=== PATIENT | female | born 1975 | race Caucasian/White ===

== ENCOUNTER 2016-08-30 15:00 | Outpatient (CLI) | payer BC ==
--- NOTE | 2016-08-31 09:46 | XRAY Report ---
RIGHT HIP, TWO-VIEW STUDY: 08/30/2016 HISTORY: Chronic hip pain. FINDINGS: BONES: Normal. No fractures or osseous lesions. JOINTS: The hip and visualized pelvis are intact with no significant arthritic disease. SOFT TISSUES: Unremarkable. IMPRESSION: NORMAL HIP RADIOGRAPHY. JOB #: [id number] EXT JOB #:[id number]
== END 2016-08-30 15:01 | disposition home or self-care (01) ==
LOC: DI 15:00
PROVIDERS: ATTEND Internal Medicine
DX: M25.551 Pain in right hip (principal)

== ENCOUNTER 2016-09-27 11:29 | Outpatient (CLI) | payer BC | END 2016-09-27 11:30 | disposition home or self-care (01) | DX: Q96.9 Turner's syndrome, unspecified (principal); Q23.1 Congenital insufficiency of aortic valve; I10 Essential (primary) hypertension; R00.2 Palpitations; I51.7 Cardiomegaly; I77.810 Thoracic aortic ectasia ==

== ENCOUNTER 2016-12-22 16:13 | Emergency (ER) | payer BC ==
[2016-12-22] MEDS ORDERED: ASPIRIN CHEW 81 MG TABLET PO STA (16:34)
[2016-12-22] MEDS ORDERED: ASPIRIN CHEW 81 MG TABLET ONE (16:37)
--- NOTE | 2016-12-22 16:37 | ED Physician Documentation ---
PD HPI CHEST PAIN - Stated complaint Stated Complaint: CP/JAW PX - Chief complaint Chief Complaint: Cardiac - History obtained from History obtained from: Patient - History of Present Illness Timing - onset: How many days ago ("a few") Timing - duration: Minutes (Lasting about a minute at a time.) Timing - details: Intermittant Quality: Other ("discomfort") Location: Substernal Radiation: Jaw Associated symptoms: Shortness of air. 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 In addition, yesterday and today she has experienced intermittent episodes of jaw pain, lasting for about a minute or less each time. She reports associated shortness of breath. She denies nausea, vomiting , or diaphoresis. She is not aware of anything in particular that makes the symptoms worse or better. She denies history of similar symptoms in the past. Her past medical history is significant for Steve syndrome, and a "trileaflet valve." Review of her medical record reveals an echocardiogram for evaluation of a bicuspid aortic valve. Cardiac risk factors are positive for hypertension; negative for diabetes, hyperlipidemia, cigarette smoking, or family history of early [place]. Review of Systems Constitutional: denies: Fever, Fatigue Ears: denies: Tinnitus/ringing Nose: denies: Congestion Throat: denies: Sore throat Cardiac: reports: Chest pain / pressure, Palpitations Respiratory: reports: Dyspnea. denies: Cough GI: denies: Abdominal Pain, Nausea, Vomiting : denies: Dysuria Skin: denies: Rash Musculoskeletal: denies: Back pain, Extremity swelling Neurologic: denies: Focal weakness, Numbness, Headache PD PAST MEDICAL HISTORY - Past Medical History Past Medical History: Yes Cardiovascular: Hypertension, Valve disorder Respiratory: None Neuro: None Endocrine/Autoimmune: None GI: None Other Past Medical History: Steve's syndrome - Past Surgical History Past Surgical History: Yes Cardiovascular: Valve replacement - Present Medications Home Medications: Ambulatory Orders Medication Instructions Recorded Confirmed Potassium Chloride [K-Dur] 20 meq PO DAILY #30 tablet 12/22/16 - Allergies Allergies/Adverse Reactions: Allergies Allergy/AdvReac Type Severity Reaction Status Date / Time No Known Drug Allergies Allergy Verified 12/22/16 16:22 - Social History Does the pt smoke?: No Smoking Status: Never smoker PD ED PE NORMAL - Vitals Vital signs reviewed: Yes (initially hypertensive) - General General: Alert and oriented X 3, Well developed/nourished - HEENT HEENT: Atraumatic, EOMI, Pharynx benign - Neck Neck: No adenopathy, No JVD - Cardiac Cardiac: RRR, No murmur - Respiratory Respiratory: No respiratory distress, Clear bilaterally - Abdomen Abdomen: Soft, Non tender - Back Back: No CVA TTP - Derm Derm: No rash - Extremities Extremities: No edema, No calf tenderness / cord - Neuro Neuro: Alert and oriented X 3, No motor deficit, Normal speech Results - Vitals Vitals: Oxygen O2 Source Room air - EKG (time done) 16:27 Rate: Rate (enter#) (84) Rhythm: NSR [place]: Normal Intervals: Normal [place] QRS: Normal Ischemia: T wave inversion (in leads II, III, aVF, and V2-V6.) Compare to prior EKG: Old EKG unavailable Computer interpretation: Agree with computer - Labs Labs: Laboratory Tests 12/22/16 12/22/16 12/22/16 16:44 16:44 16:44 WBC 8.9 RBC 4.15 L Hgb 12.9 Hct 36.5 L MCV 87.9 MCH 31.1 H MCHC 35.4 RDW 12.4 Plt Count 243 MPV 6.5 L Neut # 6.1 Lymph # 2.1 Casey # 0.6 Eos # 0.0 Baso # 0.0 Absolute Nucleated RBC 0.00 Nucleated RBCs 0.0 Sodium 136 Potassium 3.1 L Chloride 104 Carbon Dioxide 25 Anion Gap 7.0 BUN 14 Creatinine 0.6 Estimated GFR (MDRD) 110 Glucose 130 H Calcium 8.7 Total Bilirubin 0.4 AST 23 ALT 21 Alkaline Phosphatase 95 Troponin I < 0.04 Total Protein 7.0 Albumin 4.0 Globulin 3.0 Albumin/Globulin Ratio 1.3 Lipase 20 L - Rads (name of study) CXR Radiology: Prelim report reviewed, EMP read contemporaneously, See rad report ( Normal single view chest.) PD MEDICAL DECISION MAKING - ED course Complexity details: reviewed old records, reviewed results, re-evaluated patient , considered differential, d/w patient, d/w family ED course: The patient's presentation is atypical for cardiac ischemia, especially given the brief nature of the intermittent episodes. Her symptoms sound more likely to be caused by PVCs or some other brief episodic rhythm disturbance, given her description of associated palpitations. Hypokalemia may be a contributing factor. Her low potassium, at 3.1, is almost certainly due to the recent institution of treatment with hydrochlorothiazide 2 weeks ago. Treatment in the emergency department included administration of potassium 25 mEq orally. She is being discharged with prescription for supplemental potassium. I discussed with her and her the results of her workup, treatment with supplemental potassium, the importance of outpatient follow-up, as well as potentially worrisome signs or symptoms that should prompt reevaluation in the emergency department. Departure - Departure Disposition: 01 Home, Self Care Clinical Impression: Chest pain in adult, Hypokalemia Condition: Stable Instructions: ED Chest Pain Atypical Unkn Cause, ED Potassium Deficiency Follow-Up: Aleksey Arthur MD [Primary Care Provider] - Prescriptions: Potassium Chloride [K-Dur] 20 meq PO DAILY #30 tablet Comments: Take supplemental potassium daily as prescribed. Follow-up with your primary physician within 1 week. Call to schedule appointment. Return to the emergency department if you develop increasing chest pain, shortness of breath, or otherwise worsening symptoms. Discharge Date/Time: 12/22/16 17:59
[2016-12-22 16:54] LABS: BASOPHILS % (AUTO) 0.5 %; EOSINOPHILS % (AUTO) 0.3 %; HCT - HEMATOCRIT 36.5 % (37.0-47.0); HGB - HEMOGLOBIN 12.9 g/dL (12.0-16.0); LYMPHOCYTES # (AUTO) 2.1 10^3/uL (1.5-3.5); LYMPHOCYTES % (AUTO) 23.6 %; MEAN CORPUSCULAR HEMOGLOBIN 31.1 pg (27.0-31.0); MEAN CORPUSCULAR HGB CONC 35.4 g/dL (32.0-36.0); MEAN CORPUSCULAR VOLUME 87.9 fL (81.0-99.0); MEAN PLATELET VOLUME 6.5 fL (7.9-10.8); MONOCYTES # (AUTO) 0.6 10^3/uL (0.0-1.0); MONOCYTES % (AUTO) 6.8 %; NEUTROPHILS # (AUTO) 6.1 10^3/uL (1.5-6.6); NEUTROPHILS % (AUTO) 68.8 %; RED BLOOD COUNT 4.15 10^6/uL (4.20-5.40); RED CELL DISTRIBUTION WIDTH 12.4 % (12.0-15.0); UNCORRECTED WHITE BLOOD COUNT 8.9 x10^3/uL; WHITE BLOOD COUNT 8.9 x10^3/uL (4.8-10.8)
[2016-12-22 17:04] LABS: ALBUMIN/GLOBULIN RATIO 1.3 (1.0-2.2); BILIRUBIN,TOTAL 0.4 mg/dL (0.2-1.0); CALCIUM 8.7 mg/dL (8.5-10.3); CREATININE 0.6 mg/dL (0.4-1.0); POTASSIUM 3.1 mmol/L (3.5-5.0)
--- NOTE | 2016-12-22 17:40 | XRAY Preliminary Report ---
Exam: XR Chest 1 View IMPRESSION: Normal single view chest. [facility] SITE ID: [id number]
[2016-12-22] MEDS ORDERED: POTASSIUM BICARB 25 MEQ TABLET PO STA (17:44)
[2016-12-22] MEDS ORDERED: POTASSIUM BICARB 25 MEQ TABLET PO ONE (17:48)
[2016-12-22 17:51] VITALS: BP 138/95
--- NOTE | 2016-12-22 17:53 | XRAY Report ---
EXAM: CHEST RADIOGRAPHY EXAM DATE: 12/22/2016 05:18 PM. CLINICAL HISTORY: Chest pain. COMPARISON: 08/30/2016. TECHNIQUE: 1 view. FINDINGS: Lungs/Pleura: No focal opacities evident. No pleural effusion. No pneumothorax. Mediastinum: Within exam limitations, cardiomediastinal contour is normal. Other: None. IMPRESSION: Normal single view chest. [facility] Referring Provider Line: [phone] SITE ID: [id number]
== END 2016-12-22 17:59 | disposition home or self-care (01) ==
LOC: ED 16:13
DX: R07.9 Chest pain, unspecified (principal); E87.6 Hypokalemia; Q96.9 Turner's syndrome, unspecified; R94.31 Abnormal electrocardiogram [ECG] [EKG]; I10 Essential (primary) hypertension; Z95.2 Presence of prosthetic heart valve
CPT/HCPCS: 36415; 71010; 80053; 83690; 84484; 85025; 93005; 99284; A9270

== ENCOUNTER 2017-10-09 17:24 | Emergency (ER) | payer BC ==
[2017-10-09 17:30] VITALS: BP 124/89
--- NOTE | 2017-10-09 17:54 | ED Physician Documentation ---
History of Present Illness - Stated complaint Stated Complaint: BP ISSUES. SOB - Chief complaint Chief Complaint: General - History obtained from History obtained from: Patient - History of Present Illness Timing: Other (41-year-old woman with history of hypertension takes her blood pressure daily and had an asymptomatic reading of 142/100 today. No significant chest pain or trouble breathing with it, she always has some trouble breathing which she attributes to being overweight. No pedal edema.) Review of Systems Constitutional: denies: Fever, Chills Respiratory: denies: Cough GI: denies: Abdominal Pain, Nausea, Vomiting PD PAST MEDICAL HISTORY - Past Medical History Cardiovascular: Hypertension Respiratory: None Neuro: None Endocrine/Autoimmune: None GI: None - Present Medications Home Medications: Ambulatory Orders Medication Instructions Recorded Confirmed Potassium Chloride [K-Dur] 20 meq PO DAILY #30 tablet 12/22/16 Estradiol 1 mg PO 10/09/17 Levothyroxine Sodium 0 mcg PO 10/09/17 Simvastatin 5 mg PO 10/09/17 amLODIPine [Norvasc] 10/09/17 hydroCHLOROthiazide 25 mg PO 10/09/17 [Hydrochlorothiazide] medroxyPROGESTERone [Provera] 0 mg PO 10/09/17 rOPINIRole [Requip] 0.25 mg PO QPM 10/09/17 10/09/17 - Allergies Allergies/Adverse Reactions: Allergies Allergy/AdvReac Type Severity Reaction Status Date / Time No Known Drug Allergies Allergy Verified 10/09/17 17:31 - Social History Does the pt smoke?: No Smoking Status: Never smoker PD ED PE NORMAL - Vitals Vital signs reviewed: Yes - General General: Alert and oriented X 3, No acute distress - HEENT HEENT: PERRL, EOMI - Neck Neck: Supple, no meningeal sign, No bony TTP - Cardiac Cardiac: RRR, No murmur - Respiratory Respiratory: No respiratory distress, Clear bilaterally - Abdomen Abdomen: Non tender - Extremities Extremities: No edema, No calf tenderness / cord - Neuro Neuro: Alert and oriented X 3, Normal speech Results - Vitals Vitals: Vital Signs - 24 hr 10/09/17 17:28 Temperature 37 C Heart Rate 85 Respiratory 18 Rate Blood Pressure 124/89 H O2 Saturation 98 Oxygen O2 Source Room air - EKG (time done) 1752 Rate: Rate (enter#) (73) Rhythm: NSR [place]: Normal Intervals: Normal [place] Ischemia: Other (She has flat inferior T waves and inverted anterior T waves without significant change from last EKG on the chart dated December 222016.) Departure - Departure Disposition: 01 Home, Self Care Clinical Impression: Hypertension Qualifiers: Hypertension type: essential hypertension Qualified Code(s): I10 - Essential ( primary) hypertension Condition: Good Record reviewed to determine appropriate education?: Yes Instructions: Hypertension Dc Comments: Recheck with your doctor in a week or so, return if new or worsening symptoms develop.
== END 2017-10-09 18:19 | disposition home or self-care (01) ==
LOC: ED 17:24
DX: I10 Essential (primary) hypertension (principal); R94.31 Abnormal electrocardiogram [ECG] [EKG]
CPT/HCPCS: 93005; 99282; 99284

== ENCOUNTER 2018-09-11 13:54 | Outpatient (CLI) | payer BC ==
[2018-09-12 07:01] LABS: ESTRADIOL 126 pg/mL; PROGESTERONE <0.5 ng/mL
== END 2018-09-11 13:55 | disposition home or self-care (01) ==
LOC: LAB 13:54
PROVIDERS: ATTEND Obstetrics & Gynecology
DX: Q96.9 Turner's syndrome, unspecified (principal)
CPT/HCPCS: 36415; 82670; 84144

== ENCOUNTER 2018-11-20 16:31 | Outpatient (CLI) | payer BC ==
--- NOTE | 2018-11-21 08:59 | Mammography Report ---
Reason: SCREENING MAMMO Procedure Date: 11/20/2018 Accession Number: [id number] / [id number] Procedure: CYNDEE - Screening Mammo w/Nathanael CPT Code: FULL RESULT: EXAM: Screening Mammo w/Nathanael DATE: 11/20/2018 5:01 PM CLINICAL HISTORY: History of nulliparity. Screening encounter. TECHNIQUE: (B) - Bilateral CC and MLO views were obtained. A right laterally exaggerated CC views obtained. COMPARISON: 05/22/2015 and 09/15/2010. PARENCHYMAL PATTERN: (F) - The breast(s) demonstrate(s) diffuse fatty replacement. FINDINGS: There are no suspicious masses, calcifications, or areas of distortion. IMPRESSION: Negative examination. BI-RADS category 1. RECOMMENDATION: (ANNUAL) - Recommend routine annual screening mammography. BI-RADS CATEGORY: (1) - Negative. STANDARD QUALIFYING STATEMENTS: 1. This examination was not reviewed with the aid of Computer-Aided Detection (CAD). 2. A negative or benign imaging report should not preclude biopsy if clinically suspicious findings are present. 3. Dense breasts may obscure an underlying neoplasm. 4. This examination was reviewed with the aid of 3D breast imaging (tomosynthesis).
== END 2018-11-20 16:32 | disposition home or self-care (01) ==
LOC: DI 16:31
PROVIDERS: ATTEND Obstetrics & Gynecology
DX: Z12.39 Encounter for other screening for malignant neoplasm of breast (principal)
CPT/HCPCS: 77063; 77067

== ENCOUNTER 2019-08-16 12:03 | Outpatient (CLI) | payer BC ==
--- NOTE | 2019-08-18 07:09 | Ultrasound Report ---
Reason: DUB, MEZA'S SYNDROME Procedure Date: 08/16/2019 Accession Number: [id number] / [id number] Procedure: US - Pelvic w/Transvaginal CPT Code: Final Report FULL RESULT: EXAM: PELVIC ULTRASOUND EXAM DATE: 08/16/2019 12:41 PM. CLINICAL HISTORY: DUB, TURNERS SYNDROME. COMPARISON: None. TECHNIQUE: Realtime transabdominal pelvic scan performed to identify the uterus and adnexa and as an overview of other pelvic structures, followed by transvaginal scan to provide greater detail of the uterus and adnexa, with static image documentation. FINDINGS: Uterus: 8.3 x 3.6 x 5.1 cm, volume 80.8 cc. Anteverted position. Normal overall size and echotexture. Masses: None. Endometrium: 9 mm. Hypoechoic structure eccentric along the right endometrium measuring 9 x 7 x 4 mm, with color signal/vascularity Cervix: Nabothian cysts. Right Ovary: 2.3 x 1.2 x 1.5 cm, volume 2.0 cc. Anechoic cyst with thin septation containing mural nodule measures 1.7 x 1.0 cm, with the mural nodule measuring 2 mm. Normal echotexture and blood flow. Left Ovary: 1.6 x 1.2 x 1.1 cm, volume 1.0 cc. Normal echotexture and blood flow. Free Fluid: None. Other: None. IMPRESSION: 1. Suspicious for small endometrial mass near the fundus, favor polyp. Focal hyperplasia or endometrial cell carcinoma cannot be entirely excluded. Consider endometrial sampling. 2. Small cyst in the right ovary with thin septation containing mural nodule. Recommend 6-10 week follow-up ultrasound to assess for change or resolution [facility]
--- NOTE | 2019-08-20 11:16 | DEXA Report ---
Reason: PREMATURE MENOPAUSE, MEZA'S SYNDROME Procedure Date: 08/16/2019 Accession Number: [id number] / [id number] Procedure: DEX - Dexa Spine and/or Hip CPT Code: Final Report FULL RESULT: EXAM: Dexa Spine and/or Hip DATE: 08/16/2019 2:45 PM CLINICAL HISTORY: PREMATURE MENOPAUSE, MEZA'S SYNDROME TECHNIQUE: Dual energy x-ray absorptiometry (DXA) was performed on a [employer] System. Regions measured are the AP Spine, femoral neck, and if needed forearm. COMPARISON: None. In accordance with the International Society for Clinical Densitometry (ISCD) guidelines, data from previous exams may be reanalyzed using current recommendations and techniques. This is done to allow a more accurate basis for comparison with the current study. FINDINGS: The data for the lumbar spine is as follows: BMD (g/cm/cm) T-SCORE Z-SCORE REGION L1 0.961 -1.4 -2.2 L2 1.086 -0.9 -1.7 L3 1.243 0.4 -0.4 L4 1.180 -0.2 -0.9 TOTAL 1.122 -0.5 -1.2 NOTE: All evaluable vertebrae are used for classification The data for the hip is as follows: BMD (g/cm/cm) T-SCORE Z-SCORE REGION Neck 0.904 -1.0 -0.9 TOTAL 0.892 -0.9 -1.2 NOTE: The femoral neck or total proximal femur, whichever is lowest, is used for classification. IMPRESSION: THE WHO CLASSIFICATION BASED ON THE INTERNATIONAL REFERENCE STANDARD IS NORMAL. THE FRACTURE RISK IS NOT INCREASED. RECOMMENDATION: Patients with diagnosis of osteoporosis or osteopenia should have regular bone mineral density assessment. For those eligible for Medicare, routine testing is allowed once every 2 years. Testing frequency can be increased for patients who have rapidly progressing disease or for those who are receiving medical therapy to restore bone mass. COMMENT: World Health Organization (WHO) definitions for osteoporosis and osteopenia: NORMAL BMD: T-score at -1.0 or higher, fracture risk is low OSTEOPENIA BMD: T-score between -1.0 and -2.5, fracture risk is increased. OSTEOPOROSIS BMD: T-score at -2.5 or lower, fracture risk is high. National Osteoporosis Foundation recommends: 1. Obtain adequate dietary calcium (at least 1200 mg per day) and vitamin D (400-800 international units per day). 2. Participate, as appropriate, in regular weightbearing and muscle-strengthening exercise. 3. Avoid tobacco use and reduce alcohol and caffeine intake. 4. For more detailed information see the website at www.NOF.org.
== END 2019-08-16 12:04 | disposition home or self-care (01) ==
LOC: DI 12:03
PROVIDERS: ATTEND Obstetrics & Gynecology
DX: N83.201 Unspecified ovarian cyst, right side (principal)
CPT/HCPCS: 76830; 76856; 77080

== ENCOUNTER 2019-10-25 12:44 | Outpatient (CLI) | payer BC ==
--- NOTE | 2019-10-27 10:25 | Ultrasound Report ---
Reason: PREMATURE MENOPAUSE, DUB Procedure Date: 10/25/2019 Accession Number: [id number] / [id number] Procedure: US - Pelvic w/Transvaginal CPT Code: Final Report FULL RESULT: EXAM: PELVIC ULTRASOUND EXAM DATE: 10/25/2019 01:43 PM. CLINICAL HISTORY: PREMATURE MENOPAUSE, DUB. COMPARISON: PELVIC W/TRANSVAGINAL 08/16/2019 12:07 PM. TECHNIQUE: Realtime transabdominal pelvic scan performed to identify the uterus and adnexa and as an overview of other pelvic structures, followed by transvaginal scan to provide greater detail of the uterus and adnexa, with static image documentation. FINDINGS: Uterus: 8.3 x 4.3 x 4.8 cm, volume 90 cc. Anteverted position. There is heterogeneous echotexture. Masses: None. Endometrium: 7 mm. Endometrial stripe demonstrates ill-defined margins. Cervix: Cervical nabothian cysts are seen. Right Ovary: 2.1 x 0.9 x 1.8 cm, volume 1.8 cc. Normal echotexture and blood flow. A simple cyst is seen measuring 1.5 x 1.1 x 1.1 cm. Previously noted echogenic mural nodule is not appreciated on current exam. Left Ovary: Not seen secondary to obscuration by bowel gas. Free Fluid: None. Other: None. IMPRESSION: 1. Previously demonstrated mural nodule within right ovarian cyst not well appreciated on current exam, with simple cyst noted. 2. Prominent endometrium measuring up to 7 mm, with endometrial stripe demonstrating ill-defined margins. Polyp cannot be excluded. Previous recommendation of endometrial sampling should be performed, unless already done. [facility]
== END 2019-10-25 12:45 | disposition home or self-care (01) ==
LOC: DI 12:44
PROVIDERS: ATTEND Obstetrics & Gynecology
DX: N83.291 Other ovarian cyst, right side (principal); R93.89 Abnormal findings on diagnostic imaging of other specified body structures
CPT/HCPCS: 76830; 76856

== ENCOUNTER 2019-11-15 08:00 | Outpatient (CLI) | payer BC | END 2019-11-15 23:59 | disposition home or self-care (01) | LOC: LAB.WCP 08:00 | PROVIDERS: ATTEND Obstetrics & Gynecology | DX: Z01.818 Encounter for other preprocedural examination (principal) | CPT/HCPCS: 81599 ==

== ENCOUNTER 2020-05-15 16:40 | Outpatient (CLI) | payer BC | END 2020-05-15 23:59 | disposition home or self-care (01) | LOC: LAB.R 16:40 | PROVIDERS: ATTEND Physician Assistant | DX: J06.9 Acute upper respiratory infection, unspecified (principal); Z20.828 Contact with and (suspected) exposure to other viral communicable diseases ==

== ENCOUNTER 2022-03-18 13:59 | Outpatient (CLI) | payer BC ==
--- NOTE | 2022-03-18 17:12 | Ultrasound Report ---
PROCEDURE: Pelvic w/Transvaginal INDICATIONS: DUB, PREMATURE MENOPAUSE TECHNIQUE: Real-time scanning was performed of the pelvic organs, with image documentation. Additional endovagi nal scanning was necessary due to incomplete visualization of the adnexal and endometrial structures by transabdominal scanning. COMPARISON: None. FINDINGS: Uterus: Uterus is anteverted and normal in size at 8.5 x 4.8 x 4.5 cm. The myometrium is mildly het erogeneous. The endometrium measures 5.8 mm in combined thickness. Ovaries: The right ovary is not visualized. The left ovary measures 1.9 x 1.2 x 1.4 cm, with a calcu lated ovarian volume of 1.6 cc. The visualized ovary have a normal sonographic appearance. Less han n 12 follicles can be seen in each ovary. No adnexal masses are seen. Other: No pathologic free abdominal or pelvic fluid. IMPRESSION: Endometrium measures 5.8 cm. No focal mass is identified. This would be considered thick ened in a postmenopausal patient and biopsy would be recommended. Recommend correlation to menopause history. Reviewed by: Elisa Barney MD on 03/18/2022 5:11 PM PDT Approved by: Elisa Barney MD on 03/18/2022 5:11 PM PDT Station ID: [id number]
== END 2022-03-18 14:00 | disposition home or self-care (01) ==
LOC: DI 13:59
PROVIDERS: ATTEND Obstetrics & Gynecology
DX: N93.8 Other specified abnormal uterine and vaginal bleeding (principal); Q96.9 Turner's syndrome, unspecified

== ENCOUNTER 2022-03-18 15:45 | Outpatient (CLI) | payer BC ==
--- NOTE | 2022-03-21 10:05 | Mammography Report ---
BILATERAL DIGITAL SCREENING MAMMOGRAM 3D/2D WITH EXAGGERATED CC: 03/18/2022 CLINICAL: Routine screening. Comparison is made to exams dated: 11/20/2018 mammogram and 05/22/2015 mammogram - [facility]. Both breasts are almost entirely fatty (category a/<25% glandular tissue). No significant masses, calcifications, or other findings are seen in either breast. There has been no significant interval change. IMPRESSION: NEGATIVE There is no mammographic evidence of malignancy. A 1 year screening mammogram is recommended. Based on the Tyrer Cuzick model (a risk assessment model) the patients lifetime risk is 5.6% and her 10 year risk is 1.1%. According to the ACR, ACS, and NCCN guidelines, an annual breast MRI exam allyn g with mammogram is recommended if the patients lifetime risk is 20% or greater. This exam was interpreted at Station ID: [id number]. NOTE: For mammograms, a report in lay terms will be sent to the patient. Approximately 15% of breast malignancies will not be visualized mammographically. In the management of a palpable breast mass, a negative mammogram must not discourage biopsy of a clinically suspicious lesion. Electronically Signed By: Silva askew/penrad:03/18/2022 17:10:57 ACR BI-RADS Category 1: Negative 3341F PARENCHYMAL PATTERN: (F) - The breast(s) demonstrate(s) diffuse fatty replacement. BI-RADS CATEGORY: (1) - 1 RECOMMENDATION: (ANNUAL) - Recommend routine annual screening mammography. [id number] 1 year screening LATERALITY: (B)
== END 2022-03-18 23:59 | disposition home or self-care (01) ==
LOC: DI 15:45
PROVIDERS: ATTEND Obstetrics & Gynecology
DX: Z12.31 Encounter for screening mammogram for malignant neoplasm of breast (principal)

== ENCOUNTER 2022-03-19 23:28 | Emergency (ER) | payer BC ==
--- NOTE | 2022-03-20 00:02 | ED Physician Documentation ---
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 Onset earlier tonight shortly after eating marijuana edible. She says this is only the second time she has used marijuana, the first time being last night (same edible/dose but without adverse reaction). Review of Systems Constitutional: denies: Fever, Chills, Sweats Cardiac: denies: Chest pain / pressure, Palpitations Respiratory: denies: Dyspnea GI: denies: Abdominal Pain, Nausea, Vomiting PD PAST MEDICAL HISTORY - Past Medical History Cardiovascular: Hypertension Respiratory: None Neuro: None Endocrine/Autoimmune: None GI: None, Other Musculoskeletal: None, Other - Past Surgical History Past Surgical History: No Cardiovascular: Valve replacement - Present Medications Home Medications: Ambulatory Orders Medication Instructions Recorded Confirmed Potassium Chloride [K-Dur] 20 meq PO DAILY #30 tablet 12/22/16 03/19/22 Levothyroxine Sodium 50 mcg PO DAILY 10/09/17 03/19/22 Simvastatin 5 mg PO DAILY 10/09/17 03/19/22 amLODIPine [Norvasc] 2.5 mg PO DAILY 10/09/17 03/19/22 estradioL [Estradiol] 1 mg PO DAILY 10/09/17 03/19/22 hydroCHLOROthiazide 25 mg PO DAILY 10/09/17 03/19/22 [Hydrochlorothiazide] medroxyPROGESTERone [Provera] 2.5 mg PO DAILY 10/09/17 03/19/22 Pramipexole Di-HCl [Mirapex ER] 0.375 mg PO BID 03/19/22 03/19/22 Pregabalin [Lyrica] 25 mg PO HS 03/19/22 03/19/22 LORazepam [Ativan] 0.5 - 1 mg PO Q6H PRN #14 tablet 03/20/22 - Allergies Allergies/Adverse Reactions: Allergies Allergy/AdvReac Type Severity Reaction Status Date / Time No Known Drug Allergies Allergy Verified 10/09/17 17:31 - Social History Does the pt smoke?: No Smoking Status: Never smoker PD ED PE NORMAL - Vitals Vital signs reviewed: Yes - General General: Alert and oriented X 3, Well developed/nourished, Other (appears anxious, apprehensive, poor eye contact) - HEENT HEENT: PERRL, EOMI, Pharynx benign - Cardiac Cardiac: RRR - Respiratory Respiratory: No respiratory distress, Clear bilaterally - Abdomen Abdomen: Soft, Non tender - Derm Derm: Normal color, Warm and dry - Neuro Neuro: Alert and oriented X 3, No motor deficit, No sensory deficit, Normal speech Eye Opening: Spontaneous Motor: Obeys Commands Verbal: Oriented GCS Score: 15 PD ED PE EXPANDED - Cardiac Cardiac: Murmur Present (2/6 DONNA greatest at left 2nd ICS) Results - Vitals Vitals: Oxygen O2 Source Room air PD MEDICAL DECISION MAKING - ED course Complexity details: re-evaluated patient, considered differential, d/w patient ED course: given 2mg IM lorazepam and on reevaluation she is asleep, awakens to voice and reports feeling much improved. She is now making good eye contact and does not appear anxious nor apprehensive. HPI and timing of symptom onset with having just ingested marijuana edible are highly suggestive of adverse reaction to marijuana. Given her significant improvement after 2mg IM lorazepam, alternative diagnoses are not likely enough to warrant emergent testing at this time. Return precautions discussed. She is advised to not use marijuana again; she says tonight was only the second time she has used marijuana and already had concluded she will not be using marijuana again. Departure - Departure Disposition: 01 Home, Self Care Clinical Impression: Adverse effect of cannabis Qualifiers: Encounter type: initial encounter Qualified Code(s): T40.715A - Adverse effect of cannabis, initial encounter Condition: Good Instructions: ED Drug React Adverse Other Prescriptions: LORazepam [Ativan] 0.5 - 1 mg PO Q6H PRN #14 tablet PRN Reason: Anxiety Comments: Your symptoms are likely due to an adverse reaction to the marijuana edible you ingested tonight. You improved with an injection of lorazepam. You will probably not have worsening/recurrence of your symptoms, but a prescription for lorazepam has been electronically submitted to [facility] pharmacy in [place] in case the symptoms do worsen. Discharge Date/Time: 03/20/22 02:14
[2022-03-20] MEDS ORDERED: LORazepam 2 MG/ML VIAL IM STA (00:09)
[2022-03-20 02:08] VITALS: BP 107/73
== END 2022-03-20 02:14 | disposition home or self-care (01) ==
LOC: ED 23:28
DX: R25.1 Tremor, unspecified (principal); R42 Dizziness and giddiness; F41.9 Anxiety disorder, unspecified; T40.715A Adverse effect of cannabis, initial encounter
CPT/HCPCS: 96372; 99283; J2060

== ENCOUNTER 2023-01-17 07:56 | Day surgery (SDC) | payer BC ==
[2023-01-17] MEDS ORDERED: LACTATED RINGERS 1,000 ML IV ONE ×2 (07:57→10:01)
[2023-01-17] MEDS ORDERED: MIDAZOLAM 2 MG/2 ML VIAL ONE (08:45)
[2023-01-17] MEDS ORDERED: fentaNYL 100 MCG/2 ML VIAL ONE (08:45)
[2023-01-17] MEDS ORDERED: PROPOFOL 200 MG/20 ML VIAL IVP ONE (08:45)
--- NOTE | 2023-01-17 08:46 | ANESTHESIA ---
Pre-Anesthesia VS, & Labs - Diagnosis endometrial polyp, thickened endometrium - Procedure myosure hysterscopy, D&C Vital Signs: Temp Pulse Resp BP Pulse Ox O2 Flow Rate 36 C L 76 16 132/86 H 95 01/17/23 08:03 01/17/23 08:03 01/17/23 08:03 01/17/23 08:03 01/17/23 08:03 Height: 4 ft 11 in Weight (kg): 83 kg Body Mass Index: 36.9 BMI Classification: Obese - NPO >8 hours - Is Patient ?: No Home Medications and Allergies Levothyroxine Sodium 50 mcg PO DAILY 10/09/17 amLODIPine [Norvasc] 2.5 mg PO DAILY 10/09/17 hydroCHLOROthiazide [Hydrochlorothiazide] 25 mg PO DAILY 10/09/17 Pramipexole Di-HCl [Mirapex ER] 0.375 mg PO BID 03/19/22 Pregabalin [Lyrica] 50 mg PO BID 03/19/22 Ascorbic Acid/Ascorbate Sodium [Vitamin C 500 mg Tablet Chew] 1,000 mg PO DAILY 12/23/22 Atorvastatin [Lipitor] 1 tab PO DAILY 12/23/22 Cholecalciferol (Vitamin D3) [D3-5000] 1 cap PO DAILY 12/23/22 Clobetasol 0.05% Oint [Temovate 0.05% Oint] 1 applic TOP PRN PRN 12/23/22 Mecobalamin [B12 Active] 500 mcg PO DAILY 12/23/22 Potassium Chloride [K-Dur] 10 meq PO DAILY 12/23/22 Allergies/Adverse Reactions: Allergies Allergy/AdvReac Type Severity Reaction Status Date / Time No Known Drug Allergies Allergy Verified 12/23/22 14:25 Anes History & Medical History - Anesthetic History Anesthesia Complications: reports: No previous complications - Medical History Cardiovascular: reports: Hypertension, High cholesterol, Murmur (Sees cardiology, last visit no issues) Pulmonary: reports: None Gastrointestinal: reports: None Urinary: reports: None Neuro: reports: None Musculoskeletal: reports: Osteoarthritis Endocrine/Autoimmune: reports: HyPOthyroidism Blood Disorders: reports: None Skin: reports: None Smoking Status: Never smoker Psychosocial: reports: No issues indicated History of Cancer?: No - Surgical History Cardiothoracic: Gynecologic: reports: Dilation and currettage, Other Exam General: Alert, Oriented x3, Cooperative, No acute distress Dental: WNL Mouth Openin Fingerbreadth Neck Mobility: Normal Mallampati classification: II Thyromental Distance: 4-6 cm Mental/Cognitive Status: Alert/Oriented X3, Normal for patient Plan Anesthesia Type: General Consent for Procedure(s) Verified and Reviewed: Yes Code Status: Attempt Resuscitation ASA classification: 2-Mild systemic disease Is this case an emergency?: No
[2023-01-17] MEDS ORDERED: SILVER NITRATE APPLICATOR TOP ONE (08:50)
[2023-01-17] MEDS ORDERED: ONDANSETRON 4 MG/2 ML VIAL ONE (09:29)
[2023-01-17] MEDS ORDERED: DEXAMETHASONE 4 MG/ML VIAL ONE (09:29)
[2023-01-17] MEDS ORDERED: GLYCOPYRROLATE 1 MG/5 ML VIAL ONE (09:52)
[2023-01-17] MEDS ORDERED: KETOROLAC 30 MG/ML VIAL ONE (09:58)
[2023-01-17] MEDS ORDERED: ONDANSETRON 4 MG/2 ML VIAL IVP PRN (10:09)
[2023-01-17] MEDS ORDERED: ATROPINE ABBOJECT 1 MG/10 ML SYRINGE IVP PRN (10:09)
[2023-01-17] MEDS ORDERED: fentaNYL 100 MCG/2 ML VIAL IVP PRN (10:09)
[2023-01-17] MEDS ORDERED: NALOXONE 0.4 MG/ML VIAL IVP PRN (10:09)
[2023-01-17] MEDS ORDERED: HYDROmorphone 0.5 MG/0.5 ML SYRINGE IVP PRN (10:09)
[2023-01-17] MEDS ORDERED: MORPHINE 2 MG/ML CARPUJECT IVP PRN (10:09)
--- NOTE | 2023-01-17 10:17 | OPERATIVE REPORT ---
Operative Report - General Procedure Date: 01/17/23 Planned Procedure: Dilation, curettage, hysteroscopy, polypectomy Pre-Op Diagnosis: Endometrial polyp, postmenopausal bleeding Procedure Performed: Dilation, curettage, hysteroscopy Post Op Diagnosis: Normal appearing endometrium - Procedure Note Primary Surgeon: Florecita Cardozo DO Anesthesia Provider: Cora Santo CRNA Pathology: Endometrial curettings Estimated Blood Loss (mL): 20 Indications: Endometrial polyp, postmenopausal bleeding Findings: Normal appearing endometrium Complications: None - Other Other Information/Narrative: Transported to OR, anesthesia obtained. Placed in dorsal lithotomy position. Prepped and draped in sterile fashion. Bladder emptied with straight catheter. Speculum placed. Anterior lip of cervix grasped with single tooth tenaculum. Dilated to accomodate Myosure hysteroscope. Hysteroscope introduced and normal endometrium noted. Endometrial curettings obtained. Tenaculum removed. Hemos tasis. Speculum removed. Transferred to PACU in stable condition. Counts correct x2.
[2023-01-17 10:48] VITALS: BP 123/85
[2023-01-17] MEDS ORDERED: LACTATED RINGERS 1,000 ML IV SCH (11:00)
--- NOTE | 2023-01-17 11:05 | ANESTHESIA POST OP EVALUATION ---
Anesthesia Post Eval - Post Anesthesia Eval Vitals: Last Vital Signs Temp 36 C L 01/17/23 10:45 Pulse 72 01/17/23 10:45 Resp 16 01/17/23 10:45 BP 123/85 H 01/17/23 10:45 Pulse Ox 96 01/17/23 10:45 O2 Flow Rate CV Function Including HR & BP: Stable Pain Control: Satisfactory Nausea & Vomiting: Negative Mental Status: Baseline Respiratory Status: Airway Patent Hydration Status: Satisfactory Anesthesia Complications: None
== END 2023-01-17 07:57 | disposition home or self-care (01) ==
LOC: SDS 07:56
PROVIDERS: ATTEND Obstetrics & Gynecology
PROC: 0UDB8ZZ Extraction of Endometrium, Via Natural or Artificial Opening Endoscopic (ICD-10-PCS; principal; 2023-01-17 09:30)
DX: N95.0 Postmenopausal bleeding (principal); I10 Essential (primary) hypertension; E66.9 Obesity, unspecified; Z68.36 Body mass index [BMI] 36.0-36.9, adult
CPT/HCPCS: 58558; J7120

== ENCOUNTER 2023-10-02 09:20 | Outpatient (CLI) | payer OTHER ==
--- NOTE | 2023-10-03 09:25 | Mammography Report ---
BILATERAL DIGITAL SCREENING MAMMOGRAM 3D/2D: 10/02/2023 CLINICAL: Routine screening. Comparison is made to exams dated: 03/18/2022 mammogram, 11/20/2018 mammogram, and 05/22/2015 mammogram - [facility]. There are scattered areas of fibroglandular density in both breasts (category b / 25%-50% glandular t issue). No significant masses, calcifications, or other findings are seen in either breast. There has been no significant interval change. IMPRESSION: NEGATIVE There is no mammographic evidence of malignancy. A 1 year screening mammogram is recommended. Based on the Tyrer Cuzick model (a risk assessment model) the patient's lifetime risk is 8.6% and her 10 year risk is 1.8%. According to the ACR, ACS, and NCCN guidelines, an annual breast MRI exam allyn g with mammogram is recommended if the patient's lifetime risk is 20% or greater. This exam was interpreted at Station ID: [id number]. NOTE: For mammograms, a report in lay terms will be sent to the patient. Approximately 15% of breast malignancies will not be visualized mammographically. In the management of a palpable breast mass, a negative mammogram must not discourage biopsy of a clinically suspicious lesion. Electronically Signed By: Rylee perkins/yolette:10/02/2023 12:47:41 letter sent: No_Letter ACR BI-RADS Category 1: Negative 3341F PARENCHYMAL PATTERN: (A) - The breast(s) demonstrate(s) scattered fibroglandular densities. BI-RADS CATEGORY: (1) - 1 RECOMMENDATION: (ANNUAL) - Recommend routine annual screening mammography. [id number] 1 year screening LATERALITY: (B)
== END 2023-10-02 09:21 | disposition home or self-care (01) ==
LOC: DI 09:20
PROVIDERS: ATTEND Internal Medicine
DX: Z12.31 Encounter for screening mammogram for malignant neoplasm of breast (principal); R92.323 Mammographic fibroglandular density, bilateral breasts